=== PATIENT | female | born 1980 | race Two or more races ===

== ENCOUNTER 2020-10-10 12:51 | Inpatient (IN) | payer OTHER ==
[~2020-10-10 12:51] MED LIST: COZAAR100 MG PO; FORTAMET500 MG PO; GLYPIZDE PO; LEVOTHYROXINE25 MCG PO; PROAIR HFA8.5 GM IH; SINGULAIR5 MG PO
[2020-10-11] MEDS ORDERED: GLIPIZIDE XL5 MG PO (08:12)
== END 2020-10-12 13:23 | disposition home or self-care (01) | DRG 743 ==
LOC: CIR.AMB 12:51 → OB/GYN 22:16
PROVIDERS: ADMIT Obstetrics & Gynecology Obstetrics; ATTEND Obstetrics & Gynecology Obstetrics
PROC: 0UB50ZZ Excision of Right Fallopian Tube, Open Approach (ICD-10-PCS; 2020-10-10)
PROC: 0UB00ZZ Excision of Right Ovary, Open Approach (ICD-10-PCS; principal; 2020-10-10 16:30)
DX: D27.0 Benign neoplasm of right ovary (principal); D28.2 Benign neoplasm of uterine tubes and ligaments; I10 Essential (primary) hypertension; E11.9 Type 2 diabetes mellitus without complications